=== PATIENT | male | born 1955 | race African-American/Black ===

== ENCOUNTER 2023-12-17 03:53 | Observation (INO) | payer MEDICARE ==
[2023-12-17 04:53] LABS: #Eosinphils 0.2 10x3/uL (0.0-0.5); #Monocytes 0.6 10x3/uL (0.0-1.1); #Neutrophils 2.8 10x3/uL (1.5-8.4); %Basophils 0.5 % (0.0-2.0); %Eosinophils 3.1 % (0.0-6.0); %Lymphocytes 48.7 % (18.0-47.0); %Monocytes 8.5 % (0.0-10.0); %Neutrophils 38.9 % (40.0-75.0); Mean Corpuscular Hemoglobin 31.5 pg (27.0-33.0); Mean Corpuscular Volume 89.9 fl (81.2-95.1); Mean Platelet Volume 10.5 fl (7.4-10.4); Platelet Count 176 10x3/uL (150-450); RBC Distribution Width 13.2 % (11.5-14.5); Red Blood Cell (RBC) Count 4.45 10x6/uL (4.32-5.72); White Blood Cell (WBC) Count 7.3 10x3/uL (3.5-10.5)
[2023-12-17 04:57] LABS: ALT (SGPT) 17 U/L (8-55); AST (SGOT) 24 U/L (5-34); Albumin 4.2 g/dL (3.4-4.8); Alkaline Phosphatase 83 U/L (40-110); Anion Gap 12 mmol/L (10-20); BUN (Urea Nitrogen) 10 mg/dL (8.4-25.7); Bilirubin, Total 1.5 mg/dL (0.2-1.2); Calc. Creatinine Clearance 0 mL/min (70-130); Calcium 9.2 mg/dL (7.8-10.44); Carbon Dioxide 27 mmol/L (23-31); Chloride 105 mmol/L (98-107); Estimated GFR 87; Globulin 3.4 g/dL (2.4-3.5); Glucose 121 mg/dL (80-115); Potassium 3.3 mmol/L (3.5-5.1); Protein, Total 7.6 g/dL (5.8-8.1); Sodium 141 mmol/L (136-145)
[2023-12-17 05:00] LABS: Troponin I 0.018 ng/mL (< 0.028)
[2023-12-17] MEDS ORDERED: Furosemide 40 MG (4 mL) VIAL ONE (05:15)
[2023-12-17] MEDS ORDERED: Calcium Carbonate 500 MG ChewTAB PO PRN (06:10)
[2023-12-17] MEDS ORDERED: Guaifenesin DM 100-10/5 ML UDCUP PO PRN (06:10)
[2023-12-17] MEDS ORDERED: Senokot S 8.6-50 MG TAB PO PRN (06:10)
[2023-12-17] MEDS ORDERED: Ondansetron PF 4 MG/2 ML Vial IVP PRN (06:10)
[2023-12-17] MEDS ORDERED: Acetaminophen 325 MG TAB PO PRN (06:10)
[2023-12-17] MEDS ORDERED: Potassium Chloride 20 MEQ TAB PO SCH ×2 (06:15→08:00)
[2023-12-17] MEDS ORDERED: Empagliflozin 10 MG TAB PO SCH (09:00)
[2023-12-17] MEDS ORDERED: Carvedilol 6.25 MG TAB PO SCH (09:00)
[2023-12-17] MEDS ORDERED: Lisinopril 10 MG TAB PO SCH (09:00)
[2023-12-17] MEDS ORDERED: Enoxaparin 40 MG (0.4 mL) SYRINGE SC SCH (09:00)
[2023-12-17 09:46] LABS: Troponin I 0.016 ng/mL (< 0.028)
[2023-12-17 13:43] LABS: Troponin I 0.016 ng/mL (< 0.028)
[2023-12-17] MEDS ORDERED: Furosemide 20 MG (2 mL) VIAL SLOW IVP SCH (14:00)
[2023-12-17 15:49] VITALS: BMI 26.6
[2023-12-17 17:18] VITALS: BP 156/89; TEMP 97.9
[2023-12-17] MEDS ORDERED: Atorvastatin Calcium 20 MG TAB PO SCH (21:00)
== END 2023-12-17 19:35 | disposition home or self-care (01) ==
LOC: CSHERS 03:53 → SUATTDRO 03:53 → CSHTELE 05:57
PROVIDERS: ADMIT Student in an Organized Health Care Education/Training Program; ATTEND Student in an Organized Health Care Education/Training Program
PROC: B24BZZZ Ultrasonography of Heart with Aorta (ICD-10-PCS; principal; 2023-12-17)
DX: I11.0 Hypertensive heart disease with heart failure (principal); I50.9 Heart failure, unspecified; J96.01 Acute respiratory failure with hypoxia; E87.6 Hypokalemia; E78.5 Hyperlipidemia, unspecified; K21.9 Gastro-esophageal reflux disease without esophagitis; R73.9 Hyperglycemia, unspecified; Z85.038 Personal history of other malignant neoplasm of large intestine; Z79.899 Other long term (current) drug therapy; Z98.890 Other specified postprocedural states
CPT/HCPCS: 36415; 71045; 80053; 83880; 84484; 85025; 93005; 93306; 96374; 96376; G0378; J1650; J1940

== ENCOUNTER 2023-12-25 17:27 | Emergency (ER) | payer MEDICARE, SELFPAY ==
[2023-12-25] MEDS ORDERED: Furosemide 40 MG (4 mL) VIAL ONE (18:38)
[2023-12-25 18:59] LABS: #Basophils 0.1 10x3/uL (0.0-0.2); #Eosinphils 0.2 10x3/uL (0.0-0.5); #Monocytes 0.8 10x3/uL (0.0-1.1); #Neutrophils 4.4 10x3/uL (1.5-8.4); %Basophils 0.6 % (0.0-2.0); %Eosinophils 1.9 % (0.0-6.0); %Lymphocytes 34.3 % (18.0-47.0); %Monocytes 9.7 % (0.0-10.0); %Neutrophils 53.3 % (40.0-75.0); Hematocrit 39.4 % (38.8-50.0); Hemoglobin 13.8 g/dL (13.5-17.5); Mean Corpuscular Hemoglobin 31.4 pg (27.0-33.0); Mean Corpuscular Volume 89.5 fl (81.2-95.1); Mean Platelet Volume 10.5 fl (7.4-10.4); Platelet Count 181 10x3/uL (150-450); RBC Distribution Width 13.1 % (11.5-14.5); White Blood Cell (WBC) Count 8.3 10x3/uL (3.5-10.5)
[2023-12-25 19:05] LABS: ALT (SGPT) 15 U/L (8-55); AST (SGOT) 20 U/L (5-34); Albumin 3.9 g/dL (3.4-4.8); Alkaline Phosphatase 72 U/L (40-110); Anion Gap 12 mmol/L (10-20); BUN (Urea Nitrogen) 11 mg/dL (8.4-25.7); Bilirubin, Total 1.5 mg/dL (0.2-1.2); Calc. Creatinine Clearance 0 mL/min (70-130); Calcium 8.9 mg/dL (7.8-10.44); Carbon Dioxide 23 mmol/L (23-31); Chloride 108 mmol/L (98-107); Estimated GFR 79; Globulin 3.3 g/dL (2.4-3.5); Glucose 117 mg/dL (80-115); Potassium 3.4 mmol/L (3.5-5.1); Protein, Total 7.2 g/dL (5.8-8.1); Sodium 140 mmol/L (136-145)
[2023-12-25 19:18] LABS: Actual Bicarbonate (HCO3v) 26.1 mEq/L (22-28); Analyzer IN Cardio CS ER; Calcium, Ionized (venous) 1.12 mmol/L (1.16-1.32); Chloride (VBG) 106 mmol/L (98-106); Hematocrit-VBG 43 % (42.0-52.0); Hemoglobin (Hb) 14.5 g/dL (12.6-17.4); Potassium (VBG) 3.34 mmol/L (3.70-5.30); Puncture Site Other Site; RapidComm Collect By LAB; Sodium 143 mmol/L (133-146); pH (venous) 7.443 (7.32-7.43)
== END 2023-12-25 20:21 | disposition home or self-care (01) ==
LOC: CSHERS 17:27
DX: J18.9 Pneumonia, unspecified organism (principal); I11.0 Hypertensive heart disease with heart failure; I50.9 Heart failure, unspecified; M06.9 Rheumatoid arthritis, unspecified; Z85.038 Personal history of other malignant neoplasm of large intestine
CPT/HCPCS: 71046; 80053; 82805; 83880; 85025; 93005; 94760; 96374; J1940

== ENCOUNTER 2024-05-02 19:09 | Emergency (ER) | payer MEDICARE ==
[2024-05-02 20:16] LABS: #Basophils 0.04 10x3/uL (0.0-0.2); #Eosinphils 0.06 10x3/uL (0.0-0.5); #Monocytes 0.83 10x3/uL (0.0-1.1); %Basophils 0.5 % (0.0-2.0); %Eosinophils 0.8 % (0.0-6.0); %Lymphocytes 21.3 % (18.0-47.0); %Monocytes 10.4 % (0.0-10.0); %Neutrophils 66.6 % (40.0-75.0); Hematocrit 36.4 % (38.8-50.0); Hemoglobin 12.1 g/dL (13.5-17.5); Mean Corpuscular HGB CONC 33.2 g/dL (32.0-36.0); Mean Corpuscular Hemoglobin 30.5 pg (27.0-33.0); Mean Corpuscular Volume 91.7 fL (81.2-95.1); Mean Platelet Volume 10.5 fL (7.4-10.4); Platelet Count 158 10x3/uL (150-450); RBC Distribution Width 15.5 % (11.5-14.5); Red Blood Cell (RBC) Count 3.97 10x6/uL (4.32-5.72)
[2024-05-02 20:27] LABS: Bilirubin Neg (Negative); Blood, Urine Negative (Negative); Clarity Clear (Clear); Glucose, Urine (Dipstick) >=1000 mg/dL (Negative); Ketone, Urine Negative (Negative); Leukocyte 25 (Negative); Nitrite Negative (Negative); Protein, Urine (Dipstick) 15 mg/dl (Neg-Trace); Urobilinogen Normal mg/dL (Less than 2)
[2024-05-02 20:33] LABS: ALT (SGPT) 16 U/L (8-55); AST (SGOT) 28 U/L (5-34); Albumin 3.6 g/dL (3.4-4.8); Alcohol Less than 10.0 mg/dL (Less than 10); Alkaline Phosphatase 84 U/L (40-110); Anion Gap 13 mmol/L (10-20); BUN (Urea Nitrogen) 15 mg/dL (8.4-25.7); Bilirubin, Total 1.9 mg/dL (0.2-1.2); Calc. Creatinine Clearance 0 mL/min (70-130); Calcium 9.1 mg/dL (7.8-10.44); Carbon Dioxide 24 mmol/L (23-31); Chloride 108 mmol/L (98-107); Estimated GFR 52; Glucose 140 mg/dL (80-115); Potassium 3.4 mmol/L (3.5-5.1); Protein, Total 7.6 g/dL (5.8-8.1); Sodium 142 mmol/L (136-145)
[2024-05-02 20:39] LABS: Troponin I 0.043 ng/mL (< 0.028)
[2024-05-02 20:46] LABS: Bacteria/HPF None Seen HPF (None Seen); CAUTI Indications for Culture Alt mental st,lethar; RBC/HPF None Seen HPF (0-3); Squamous Epithelial 0-3 HPF (0-3); Urine Culture Reflex No No; WBC/HPF 0-3 HPF (0-3)
[2024-05-02] MEDS ORDERED: Aspirin Chewable 81 MG TAB ONE (20:48)
[2024-05-02 21:19] LABS: INR-International Normal Ratio 1.2; PTT 28.7 sec (22.0-33.0)
[2024-05-02 21:29] LABS: Troponin I 0.032 ng/mL (< 0.028)
[2024-05-02] MEDS ORDERED: Potassium Bicarbonate/Cit Ac 20 MEQ TAB ONE (21:56)
== END 2024-05-02 23:20 | disposition short-term general hospital (02) ==
LOC: CSHERS 19:09
DX: R55 Syncope and collapse (principal)
CPT/HCPCS: 36415; 36416; 70450; 71045; 71275; 80053; 80307; 81001; 83880; 84484; 85025; 85610; 85730; 93005; 93010

== ENCOUNTER 2024-05-17 10:45 | Outpatient (CLI) | payer MEDICARE | END 2024-05-17 10:46 | disposition home or self-care (01) | LOC: CSHCP 10:45 | PROVIDERS: ATTEND Internal Medicine | DX: R06.09 Other forms of dyspnea (principal) | CPT/HCPCS: 94060; 94664; 94726; 94729; 94760 ==